=== PATIENT | male | born 1990 | race African-American/Black ===

== ENCOUNTER 2024-10-16 16:23 | Emergency (ER) | payer OTHER, SELFPAY ==
--- NOTE | ~2024-10-16 | CT_ITS ---
History: Unresponsive PROCEDURE: CT head without contrast. COMPARISON: None TECHNIQUE: Axial imaging of the head performed from the skull base to the vertex without IV contrast. Sagittal a nd coronal reformations obtained. Examination is limited with a significant amount of motion artifact. DLP: 1513 mGy-cm FINDINGS: The ventricles are normal in size, shape and position. There is no mass, mass effect or midline shift. There is no abnormal extra-axial fluid collection or intracranial hemorrhage. Visualized paranasal sinuses are clear. The mastoid air cells are well aerated. No acute displaced fractures within the overlying cranium. Impression: No acute intracranial hemorrhage or suspicious mass effect. Reviewed, dictated and finalized at location A. Impression: No acute intracranial hemorrhage or suspicious mass effect.
--- NOTE | ~2024-10-16 | CT_ITS ---
EXAMINATION: CT soft tissue neck chest wo DATE: 10/16/2024 17:25 INDICATION: Stridor TECHNIQUE: Computed tomography (CT) of the neck was performed without intravenous contrast. Automated exposure control and iterative reconstruction technique were employed. The dose-length product was 5 54.77 mGy-cm. COMPARISON: CTPA chest, CT cap same date FINDINGS: The thyroid gland is unremarkable. The submandibular and parotid glands are symmetric. There is n o cervical lymphadenopathy. There are no masses identified. Mild mucosal edema posteriorly at the level of the glottis. Slight airway narrowing and asymmetry at the level of the glottis but the airwa y remains patent. Parapharyngeal and pre-glottic fat planes are preserved. The orbits are unremarka ble. Visualized sinuses and mastoid air cells are well aerated. Subtle cluster of centrilobular n odular opacities in the left upper lung. Regional bones are unremarkable. Dental caries. Extensive s ubcutaneous gas in the hypopharynx, pharynx, neck, thoracic inlet, anterior chest, bilateral shoulder s, and superior mediastinum. IMPRESSION: Mild glottic mucosal edema. Overall patent airway, with slight narrowing and asymmetry at the level o f the glottis. A mass lesion is difficult to exclude without contrast. Extensive subcutaneous emphysema in the neck and upper chest. Small focus of centrilobular nodular opacities in the right upper lung, likely representing a focus o f infection or inflammatory change. Please also refer to the reports on the CTPA chest and CT chest abdomen and pelvis performed concurre ntly. Reviewed, dictated and finalized at location K. IMPRESSION: Mild glottic mucosal edema. Overall patent airway, with slight narrowing and as ymmetry at the level of the glottis. A mass lesion is difficult to exclude with out contrast. Extensive subcutaneous emphysema in the neck and upper chest. Small focus of centrilobular nodular opacities in the right upper lung, likely representing a focus of infection or inflammatory change. Please also refer to the reports on the CTPA chest and CT chest abdomen and pel vis performed concurrently.
--- NOTE | ~2024-10-16 | CT_ITS ---
EXAMINATION: CTA chest PE protocol DATE: 10/16/2024 17:31 CDT INDICATION: Elevated d-dimer. Unresponsive TECHNIQUE: Computed tomographic angiography (CTA) of the chest was performed with 100 mL Omnipaque-35 0 intravenous contrast. The dose-length product was 951.46 mGy-cm. Maximum intensity projection 3D-re constructions of the aorta and other arteries were constructed by the technologist on a separate work station. COMPARISON: None. FINDINGS/OBSERVATIONS: PULMONARY ARTERIES: No filling defect is identified within the main or proximal pulmonary artery. The main pulmonary artery is not enlarged. THORACIC AORTA: No aneurysmal dilatation or dissection is present. The great vessels are intact LUNGS: MEDIASTINUM: Pneumomediastinum and pneumopericardium are identified. Air within the soft tissues extends cranially and involves the soft tissues surrounding the carotid s heaths, along the the strap muscles, within the supraclavicular regions bilaterally as well as within the bilateral shoulders. No morphologically suspicious or pathologically enlarged lymph nodes are identified within the medias tinum or bilateral axilla. BONES OF THE CHEST: No acute significantly displaced fracture is identified, although examination is somewhat secondary to more motion artifact. No significant degenerative disease. No lytic or blastic lesions. HEART: The heart is of normal size, without pericardial effusion. IMPRESSION: No pulmonary embolus. No thoracic aortic dissection. Pneumomediastinum and pericardium as well as punctate foci of air along the soft tissues surrounding the carotid sheath, along the strap muscles within the supraclavicular regions as well as extending t o the bilateral shoulders, right more than left. Reviewed, dictated and finalized at location A. IMPRESSION: No pulmonary embolus. No thoracic aortic dissection. Pneumomediastinum and pericardium as well as punctate foci of air along the sof t tissues surrounding the carotid sheath, along the strap muscles within the hinojosa praclavicular regions as well as extending to the bilateral shoulders, right mo re than left.
--- NOTE | ~2024-10-16 | CT_ITS ---
CLINICAL INDICATION: Sepsis COMPARISON: None. TECHNIQUE: Multiple contiguous axial images of the chest, abdomen and pelvis were performed without t he administration of intravenous contrast The dose-length product (DLP) was 1581.79 mGy-cm. Automated exposure control and iterative reconstruction technique were employed. FINDINGS/OBSERVATIONS: LUNG: Patchy groundglass nodularity detected bilaterally, right greater than left for which an infect ious (rather than malignant) etiology is suspected. MEDIASTINUM:Pneumomediastinum is noted, extending cranially into the thoracic inlet. Limited evaluation of the remainder of the mediastinum without intravenous contrast. HEART: The heart is of normal size, without pericardial effusion. Pneumopericardium is present. SOFT TISSUES OF THE CHEST: Punctate foci of air are also detected within the soft tissues surrounding the strap muscles, pectoralis major and minor musculature, and extending to the bilateral shoulders, right greater than left. Liver: The liver demonstrates homogeneous attenuation and is enlarged measuring 20 cm in longitudinal dimens ion. Gallbladder and biliary system: The gallbladder is only minimally distended, and otherwise unremarkable. Pancreas: Limited evaluation of the pancreas secondary to the lack of intravenous contrast. Spleen: The spleen demonstrates homogeneous attenuation and is not enlarged. Kidneys: The bilateral kidneys are unremarkable, without hydronephrosis or renal calculi. Adrenal glands: Unremarkable. Gastrointestinal tract: Fecal stasis within the colon. No free fluid within the abdomen or pelvis. No free intraperitoneal air. Appendix: The air-filled appendix is of normal caliber (axial series, images 169 through 207). Vasculature: Unremarkable. Lymph nodes: Limited evaluation without intravenous contrast. Pelvic structures: The bladder is only minimally distended, and otherwise unremarkable. The prostate gland is not enlarged Body wall and musculoskeletal: Small fat-containing umbilical hernia. No significant degenerative disease within the lower thoracic or lumbosacral spine. IMPRESSION: Patchy groundglass opacification detected bilaterally, right greater than left, for which an infectio us etiology is suspected. Pneumomediastinum, pneumopericardium, as well as air extending cranially and surrounding the strap mu scles and soft tissues within the thoracic inlet (including the carotid sheaths). No acute displaced fracture. No free intraperitoneal air. No free fluid within the abdomen or pelvis. Reviewed, dictated and finalized at location A. IMPRESSION: Patchy groundglass opacification detected bilaterally, right greater than left, for which an infectious etiology is suspected. Pneumomediastinum, pneumopericardium, as well as air extending cranially and hinojosa rrounding the strap muscles and soft tissues within the thoracic inlet (includi ng the carotid sheaths). No acute displaced fracture. No free intraperitoneal air. No free fluid within the abdomen or pelvis.
--- NOTE | ~2024-10-16 | XR_ITS ---
EXAMINATION: XR chest 1V portable DATE: 10/16/2024 16:52 INDICATION: Shortness of breath TECHNIQUE: frontal view of the chest was obtained. COMPARISON: None FINDINGS: Suggestion of small amount of pneumomediastinum along the left mainstem bronchus and more cephalad in the superior mediastinum extending into the soft tissues at the base of the neck and bilateral supra clavicular regions. Lungs are clear with no focal airspace opacities, pulmonary edema, pleural effusi on or pneumothorax. The cardiomediastinal silhouette is normal. Visualized bones and soft tissues are unremarkable. IMPRESSION: 1. Pneumomediastinum. No pneumothorax or other acute cardiopulmonary disease. Dr. Wagner discussed these findings with Dr. Vaughan at 4:57 PM. Reviewed, dictated and finalized at location A. IMPRESSION: 1. Pneumomediastinum. No pneumothorax or other acute cardiopulmonary disease. Carlos Wagner discussed these findings with Dr. Vaughan at 4:57 PM.
[2024-10-16 16:20] VITALS: BP 110/72; PULSE 105; RESP 26; TEMP 37.4; O2SAT 98
--- NOTE | 2024-10-16 16:25 | ECG_ITS ---
Test Date: 2024-10-16 16:29:51 Measurements Intervals [place] Rate: 107 P: 77 [place]: 113 QRS: 67 QRSD: 86 T: 72 QT: 326 QTc: 437 Interpretive Statements SINUS TACHYCARDIA LEFT ATRIAL ENLARGEMENT [-0.15mV P-WAVE IN V1/V2] No previous ECG available for comparison Electronically Signed On 10-17-2024 11:02:32 CDT by Kyrie Dukes M.D.
[2024-10-16] MEDS: SODIUM CHLORIDE 0.9% IV 1,000 ML 999 ML IV CONT ×3 (16:33→17:53)
[2024-10-16 16:34] VITALS: BP 125/61; PULSE 107; RESP 22; O2SAT 99
--- OUTSIDE RECORDS SUMMARY | 2024-10-16 16:35 | XMS_ITS | Clinical Summary ---
Author Organization [facility] Address [address] [place] [address] Phone Care Team Providers Care Testing Consultant Name Role Phone Yovani Pate MD Primary Care Provider [phone] Allergies Active Allergy Reactions Criticality Noted Date Comments Egg-Derived Products Unknown Latex Unknown Milk (Cow) Unknown Neomycin Unknown Neomycin-Bacitracin Zn-Polymyx Unknown Other Unknown [place], wheat Isoflavones (Soy) Unknown Medications sertraline (ZOLOFT) 100 MG Tablet Take 200 mg by mouth daily. Active lisinopril (PRINIVIL, ZESTRIL) 10 MG Tablet Take 10 mg by mouth daily. Active OLANZapine (ZYPREXA) 5 MG Tablet Take 5 mg by mouth nightly. Active predniSONE (DELTASONE) 10 MG Tablet Take 1 Tab by mouth daily. TAKE 3 TABLETS PO DAILY X 3 DAYS THEN TAKE 2 TABLETS PO DAILY X 3 DAYS THEN TAKE 1 TABLET PO DAILY X 3 DAYS 18 Tab 0 09/08/2015 Active ARIPiprazole (ABILIFY) 10 MG Tablet Take 10 mg by mouth daily. Active ibuprofen (MOTRIN) 800 MG Tablet Take 1 Tab by mouth every 8 hours. 270 Tab 3 11/23/2015 Active baclofen (LIORESAL) 10 MG Tablet Take 1 Tab by mouth nightly as needed for Pain. 10 Tab 0 11/23/2015 Active Active Problems Problem Noted Date Diagnosed Date Abnormal LFTs Pancreatitis Blood in stool Elevated amylase and lipase Overview (02/23/2015): And bilirubin with normal liver function tests on Nov 05 at [facility] Rectal bleeding Overview (02/23/2015): With local symptoms Encounters Date Type Department Care Team Description 10/05/2024 3:30 PM CDT - 10/05/2024 4:04 PM CDT Emergency [facility] Emergency [address] [place] [address] Akshat Cruz MD Laceration of right middle finger without damage to nail, foreign body presence unspecified, initial encounter Discharge Disposition: Discharged to home or Selfcare 10/05/2024 Travel from Last 3 Months Social History Tobacco Use Types Packs/Day Years Used Date Smoking Tobacco: Former Alcohol Use Standard Drinks/Week Comments No 0 (1 standard drink = 0.6 oz pur e alcohol) Sex and Gender Information Value Date Recorded Sex Assigned at Not on file Legal Sex Male 10:54 PM CDT Gender Identity Not on file Sexual Orientation Not on file Last Filed Vital Signs Vital Sign Reading Time Taken Comments Blood Pressure 171/80 10/05/2024 3:31 PM CDT Pulse 115 10/05/2024 3:31 PM CDT Temperature 36.6 C (97.8 F) 10/05/2024 3:31 PM CDT Respiratory Rate 18 10/05/2024 3:31 PM CDT Oxygen Saturation 100% 10/05/2024 3:31 PM CDT Inhaled Oxygen Concentration - - Weight 108.9 kg (240 lb) 10/05/2024 3:31 PM CDT Height 182.9 cm (6') 10/05/2024 3:31 PM CDT Body Mass Index 32.55 10/05/2024 3:31 PM CDT Plan of Treatment Health Maintenance Due Date Last Done Comments Hepatitis C Virus (HCV) Screening 1989 TdaP Immunization 1989 Human Papillomavirus (HPV) Immunization (1 - Male 3-dose series) 2004 Hepatitis B Immunization (1 of 3 - 19+ 3-dose series) 2008 SARS-COV-2 Immunization ( - 2023- season) 2023 Influenza Immunization (#1) 2024 Respiratory Syncytial Virus (RSV) Immunization (Adult) (1 - 1-dose 75+ series) 2064 Meningococcal Immunization (ACWY) Aged Out No longer eligible based on patient's age to complete this topic Pneumococcal Immunization Combined Aged Out No longer eligible based on patient's age to complete this topic Rotavirus Immunization Aged Out No lo nger eligible based on patient's age to complete this topic Procedures Procedure Name Priority Date/Time Associated Diagnosis Comments LACERATION REPAIR Routine 10/05/2024 3:4 9 PM CDT from Last 3 Months Results * Laceration Repair (10/05/2024 3:49 PM CDT) Narrative Akshat Cruz MD - 10/05/2024 3:49 PM CDT Akshat Cruz MD 10/05/2024 4:02 PM Laceration Repair Performed by: Akshat Cruz MD Authorized by: Akshat Cruz MD Treatment: Wound cleansed with: Area was cleansed with spray wound grounds cleaner copiously. Amount of cleaning: Standard Visualized foreign bodies/material removed: yes Debridement: None Skin repair: Repair method: Steri-Strips Number of Steri-Strips: 3 Approximation: Approximation: Close Repair type: Repair type: Simple Post-procedure details: Dressing: Bulky dressing Procedure completion: Tolerated well, no immediate complications Comments: Bulky dressing was applied to prevent patient from bending at the PIP joint. Akshat Cruz MD PROCEDURE/MINOR SURGICAL O RDERABLES Final Result from Last 3 Months Insurance MEDICAID [place] MED[place]ARE Care Teams Testing Consultant Relationship Specialty Start Date End Date Yovani Pate MD [address] [place] [address] PCP - General Internal Medicine 09/02/15
--- OUTSIDE RECORDS SUMMARY | 2024-10-16 16:35 | XMS_ITS | Continuity of Care Document ---
Author Organization [facility] [place] [place] Address [address] [facility] [address] [place] [address] Phone Care Team Providers Care Rotary Drum Tanner Name Role Phone Karel ENCINAS FACS, Joesph Unavailable Unavailab le Allergies, Adverse Reactions, Alerts Substance Reaction Status Criticality polymyxin B Active No Information PRAMOXINE HCL Active No Information pramoxine Active No Information POLYMYXIN B SULFATE Active No Infor mation NEOMYCIN SULFATE Active No Informat ion BACITRACIN ZINC Active No Informati on latex Active No Information Medications Medication Instructions Dosage Effective Dates (start - stop) Status Comments lisinopril 10 mg-hydrochlorothiaz bailey 12.5 mg tablet take 1 tablet by oral route every day 1.00 tablet - Active Abilify 20 mg tablet take 1 tablet by oral route every day 20 MG - Active trazodone 100 mg tablet take 1 tablet by oral route 2 times every day after meals 100 MG - Active Wellbutrin XL 300 mg 24 hr tablet, extended release take 1 tablet by oral route every day 300 MG - Active Procedures Procedure Date Vision Svcs Frames Purchases SV Plastic Sphcyl Ewing +/-4d, .12-2d Se Lens-Index 1.54-1.79 Glass Anti-reflective Coating Refraction Fundus Photography W/ Report Corneal Topography Eye Exam, New Patient Vision Sv[employer] Frames Purchases SV Plastic Sphcyl Ewing +/-4d, .12-2d De Lens-Index 1.54-1.79 Glass Anti-reflective Coating Contact Lens Hydrophilic, Spherical Contact Lens Hydrophilic, Spherical Contact Lens Hydrophilic, Spherical Contact Lens Hydrophilic, Spherical Contact Lens Hydrophilic, Spherical CL Replacement - [employer] Other SV Plastic Sphcyl Ewing +/-4d, .12-2d Oc CL Replacement - [employer] Other 008 CL Replacement - [employer] Other 008 CL Replacement - [employer] Other 007 CL Replacement - [employer] Other 007 No Charge Glasses Check CL Replacement - [employer] Other 007 Advance Directives Directive Yes / No Effective Date File Name No Information Encounters Encounter Description Practice Location Reason(s) For Visit Diagnoses Date Provider Providers Copied on Encounter [facility], [id number] [place] [address] [address], [place], [place], [id number], [place] tel:[phone] SEC Natalee Martinez No Information 1 Karel Pink. [address] [facility], [address], [place], [place], [address], [place]. tel:[phone] [facility], [address] [facility] [address], [place], [place], [address], [place] tel:[phone] SEC Natalee Martinez No Information 9 [facility] . [address] [facility], [address], [place], [place], [id number], [place]. tel:[phone] Referring Provider: Antoine Johnson, [facility] [address]th [address], [place], [address]. tel:[phone] sulting Provider: Terry Shah, [address], [place], [address] . tel:[phone] [facility], [address], [place], [place], [address], [place] tel:[phone] SEC Maximiliano MILLER Professional Complete Exam (chief complaint) Regular astigmatism of both eyesOptic cupping of both eyes Sep-0 9 Maggie OD Antoine. [address] [place] [address], [address] [place] [address], [place], [address], [place]. tel:[phone] Referring Provider: Antoine Serrano OD R, [address] [place] [address], [place], [address]. tel:[phone] [facility], [address], [place], [place], [address], [place] tel:[phone] SEC Natalee Martinez No Information Feb-0 2 [facility] . [address], [id number], . tel:[phone] Referring Provider: Raymond Jones, [address] [address], [place], [address] . tel:[phone] sulting Provider: Terry Shah, [address] [facility], [place], [address] . tel:[phone] [facility], [address], [place], [place], [address], [place] tel:[phone] SEC Natalee Martinez No Information Dec-3 2 Alfred Andrade. [address] [facility], [address], [id number], [place]. tel:[phone] [facility], [address], [place], [place], [address], [place] tel:[phone] SEC Natalee Martinez No Information 0 2 [facility] . [address] [facility], [address], [id number], [place]. tel:[phone] Referring Provider: Raymond Jones, [address] [facility] [address], [place], [address] . tel:[phone] sulting Provider: Juli Flores, [address] [facility]. [address], [place], [address]. tel:[phone] [facility], [address], [place], [place], [address], [place] tel:[phone] SEC Natalee N [place] No Information 3201 1 [facility] . [address] [facility], [address], [place], [address], [place]. tel:[phone] Referring Provider: Raymond Jones, [address] [facility] [address], [place], [address] . tel:[phone] sulting Provider: Juli Flores, [address] [facility]. [address], [place], [address]. tel:[phone] [facility], [address], [place], [place], [address], [place] tel:[phone] SEC [place] N [place] No Information 6201 0 [facility] . [address] [place] [address], [address], [place], [address], [place]. tel:[phone] Referring Provider: Shaggy Horner, [address] [facility] [address], [place], [address] . tel:[phone] sulting Provider: Anyi Buitrago, [address] [facility], [place], [address]. tel:[phone] [facility], [address], [place], [place], [address], [place] tel:[phone] SEC Natalee N [place] No Information 8201 0 [facility] . [address] [facility], [address] [place] [address], [id number], . tel:[phone] Referring Provider: Shaggy Horner, [address] [place], [address] . tel:[phone] del angel Provider: Anyi Buitrago, [address] [place], [address]. tel:[phone] [facility], [address] [place] [address] [address], [place], [place], [id number], tel:[phone] SEC Natalee N [place] No Information 9 [facility] . [address] [place] [address], [id number], . tel:[phone] Referring Provider: Shaggy Horner, [address] [place], [address] . tel:[phone] [facility], [address] [place] [address] [address], [place], [place], [address], [place] tel:[phone] SEC [place] N [place] No Information 9 [facility] . [address] [place] [address], [id number], . tel:[phone] Referring Provider: Raymond Jones, [address], [address] . tel:[phone] del angel Provider: Anyi Buitrago, [address] [place] [address], [address]. tel:[phone] [facility], [address] [place] [address] [address], [place], [place], [address], [place] tel:[phone] SEC [place] N [place] No Information 200 8 [facility] . [address] [place] [address], [address], [id number], . tel:[phone] Referring Provider: Shaggy Horner, [address], [place], [address] . tel:[phone] sulting Provider: Anyi Buitrago, [address] [place], [address]. tel:[phone] [facility], [address] [place] [address] [address], [place], [place], [address], [place] tel:[phone] SEC Natalee N [place] No Information 200 8 [facility] . [address] [facility], [address], [id number], . tel:[phone] Referring Provider: Shaggy Horner, [address] [facility], [place], [address] . tel:[phone] [facility], [address] [place] [address] [address], [place], [place], [address], [place] tel:[phone] SEC [place] N [place] No Information 200 8 [facility] . [address] [place] [address], [address], [id number], [place]. tel:[phone] Referring Provider: Raymond Jones, [address], [address] . tel:[phone] sulting Provider: Anyi Buitrago, [address] [place], [address]. tel:[phone] [facility], [address] [place] [address] [address], [place], [place], [address], [place] tel:[phone] SEC [place] N [place] No Information 9200 7 [facility] . [address] [place] [address], [address] [place] [address], [id number], . tel:[phone] Referring Provider: Shaggy Horner, [address] [facility] [address], [place], [address] . tel:[phone] sulting Provider: Anyi Buitrago, [address] [place], [address]. tel:[phone] [facility], [address], [place], [place], [address], [place] tel:[phone] SEC Maximiliano [place] Professional No Information 200 7 [facility] . [address] [facility], [address] [place] [address], [id number], [place]. tel:[phone] Referring Provider: Shaggy Horner, [address] [facility] [address], [place], [address] . tel:[phone] del angel Provider: Anyi Buitrago, [address] [place], [address]. tel:[phone] [facility], [address], [place], [place], [address], [place] tel:[phone] SEC [facility] Professional No Information 0 200 7 Eva Coon. [address] [facility], [facility] [place], [address], [place]. tel:[phone] [facility], [address], [place], [place], [address], [place] tel:[phone] SEC [place] Natasha [facility] No Information 200 7 [facility] . [address] [facility], [address] [place] [address], [id number], [place]. tel:[phone] Referring Provider: Raymond Jones, [address] [facility] [address] [place] [address], [address] . tel:[phone] del angel Provider: Anyi Buitrago, [address] [place], [address]. tel:[phone] Family History Family Member Type Diagnosis Age At Onset Paternal grandmother Problem (finding) Diabetes mellit Maternal grandmother Problem (finding) hypertension Problem (finding) Payers Payer name Insurance type Covered constitution party ID Authoriza tion(s) No Information Social History Type Description Quantity Date Captured Comments Alcohol Use Details 1 drink rarely Caffeine Use Details Tobacco Use Status Light cigarette smok er (1-9 cigs/day) Smoking Status Light tobacco smoker Smoking Tobacco Use Details Cigarette: No Details Available Cigarette: 1 Cigarettes per day Sex Male Chief Complaint And Reason For Visit No Information Reason For Referral Reason For Referral No Information Plan Of Treatment Date Type Action Status Goal Tobacco cessation counseling completed Goal Tobacco cessation counseling completed History Of Present Illness Encounter Date Complaint History Of Prese nt Illness Complete Exam The 28 year old male presents for evaluation of Complete Exam in the right eye and left eye. Patient feels [facility] gotten [facility] over the last couple of years. Functional Status Date Functional Assessmen t No Information Instructions Date Instruction Additional Infor mation Impression/Plan Assessments Type Assessment Date No Information Patient Care Teams Name Effective Dates (start - stop) Status Members No Information
[2024-10-16 16:46] LABS: Alveolar/Arterial O2 Gradient 13.3 mmHg; Fractional Inspired Oxygen 21 %; HCO3 ABG 22.8 mEq/l (22.0-26.0); Oxygen Content ABG 19.1 %vol (16.0-22.0); Oxygen Saturation ABG 97.7 % (95.0-100.0); PCO2 ABG 33.4 mmHg (35.0-45.0); PO2 ABG 96.4 mmHg (80.0-100.0); PO2 FiO2 Ratio Arterial Blood 4.59 %
[2024-10-16 16:46] LABS: Hematocrit 41.9 % (42.0-52.0); Hemoglobin 13.4 g/dL (14.0-18.0); Immature Granulocyte Percent A 0.8 % (0-0.5); Lymphocytes Absolute Auto 0.44 K/mm3 (0.9-3.2); Mean Corpuscular HGB Conc 32.0 g/dl (32-36); Mean Corpuscular Hemoglobin 27.2 pg (26-34); Mean Corpuscular Volume 85.2 fl (80-100); Nucleated Red Blood Cells Absolute Auto 0.000 K/mm3 (0.0-0.012); Nucleated Red Blood Cells Perc 0.0 % (0.0-0.2); Platelet Count Result 165 k/mm3 (150-375); Red Blood Count 4.92 M/mm3 (4.6-6.20); White Blood Count 18.3 K/mm3 (4.5-10.0)
[2024-10-16 16:47] LABS: Modified Allen's Test Pass; Site Drawn LEFT RADIAL
--- NOTE | 2024-10-16 16:56 | PC.NURSE ---
pt awake upon arrival to ED, unable to comprehend d/t pt mouth being so dry. pt given wet mouth swabs. pt able to follow commands and a&ox4 once mouth more moist. pt still hoarse.
[2024-10-16 16:57] LABS: INR 1.5; Prothrombin Time 17.9 Seconds (11.1-14.7)
[2024-10-16 17:07] LABS: Add Urine Microscopic? YES; Appearance Urine Cloudy (Clear); Glucose Urine UA Negative (Negative); Leukocyte Esterase Ur Negative LEU/UL (Negative); Need Manual Microscopic Reviewed; Nitrate Urine Negative (Negative); Specific Grav Ur 1.017 (1.001-1.035)
[2024-10-16 17:08] LABS: Alanine Aminotransferase 494 U/L (6-50); Albumin Level 3.4 g/dL (3.5-5.1); Alkaline Phosphatase 85 U/L (38-126); Anion Gap 9 mmol/L (4-12); Aspartate Amino Transferase 530 U/L (17-59); Bilirubin,Total 0.7 mg/dL (0.2-1.3); Calcium 6.6 mg/dL (8.4-10.2); Carbon Dioxide 25 mmol/L (22-30); Chloride 104 mmol/L (98-107); Estimated CRCL calculation 51 ml/min; Estimated Glomerular Filt Rate 32; Glucose 215 mg/dL (65-110); Potassium 4.4 mmol/L (3.4-5.0); Sodium 138 mmol/L (137-145); Total Protein 6.7 g/dL (6.3-8.2)
[2024-10-16 17:10] LABS: NT Pro B Type Natriuretic Pept 6850 pg/mL (19.9-100); Troponin I 0.013 ng/mL (0.000-0.034)
[2024-10-16 17:14] LABS: Cannabinoid Screen Urine Positive (Negative)
[2024-10-16 17:21] LABS: Blood Urea Nitrogen 142 mg/dL (9-20)
[2024-10-16 17:30] VITALS: PULSE 106; RESP 20; O2SAT 100
--- NOTE | 2024-10-16 17:42 | PCRCNOTE ---
ABG delayed due to the patient needed imaging.
[2024-10-16 17:45] LABS: Creatine Kinase > 16000 U/L (55-170)
[2024-10-16 18:02] VITALS: BP 121/71; PULSE 105; RESP 19; O2SAT 100
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
[2024-10-16 18:57] VITALS: BP 141/75; PULSE 103; RESP 20; O2SAT 99
== END 2024-10-16 18:59 | disposition short-term general hospital (02) ==
PROVIDERS: Emergency Provider Family Medicine
DX: N17.9 Acute kidney failure, unspecified (principal); I47.10 Supraventricular tachycardia, unspecified; J98.2 Interstitial emphysema; M62.82 Rhabdomyolysis; R41.82 Altered mental status, unspecified; R94.31 Abnormal electrocardiogram [ECG] [EKG]
CPT/HCPCS: 36415; 36600; 70450; 70490; 71045; 71250; 71275; 74176; 80053; 80307; 81001; 82550; 82805; 83605; 83880; 84146; 84484; 85018; 85025; 85380; 85610; 93005; 96360; 96361; 99285; J7030; Q9967